=== PATIENT | male | born 1960 | race Caucasian/White ===

== ENCOUNTER 2020-03-22 05:03 | Inpatient (IN) | payer MEDICAID ==
[2020-03-15 15:36] LABS: BASOPHILS % (AUTO) 0.2 % (0-1); EOSINOPHILS # (AUTO) 0.1 X10'3 (0-0.9); EOSINOPHILS % (AUTO) 1.4 % (0-6); LYMPHOCYTES # (AUTO) 2.3 X10'3 (1.1-4.8); LYMPHOCYTES % (AUTO) 26.6 % (21-51); MEAN CORPUSCULAR HEMOGLOBIN 29.5 PG (27.0-31.0); MEAN CORPUSCULAR HGB CONC 33.9 g/dL (33.0-36.5); MEAN CORPUSCULAR VOLUME 87.2 FL (78-98); MONOCYTES # (AUTO) 0.9 X10'3 (0-0.9); NEUTROPHILS # (AUTO) 5.4 X10'3 (1.8-7.7); NEUTROPHILS % (AUTO) 61.8 % (42-75); PRE OP HEMATOCRIT 45.1 % (42.0-52.0); PRE OP HEMOGLOBIN 15.3 g/dL (14.0-17.9); PRE OP PLATELET COUNT 325 X10'3 (140-440); RED BLOOD COUNT 5.17 X10'6 (4.70-6.10); RED CELL DISTRIBUTION WIDTH 13.5 % (11.5-14.5)
[2020-03-15 15:47] LABS: HEMOGLOBIN A1C 5.9 % (4.5-6.2)
[2020-03-15 15:51] LABS: ALBUMIN 3.8 G/DL (3.4-5.0); ALKALINE PHOSPHATASE 124 IU/L (46-116); BLOOD UREA NITROGEN 21 MG/DL (7-18); BUN/CREATININE RATIO 21.9 (5.4-32.0); CALCIUM 8.9 MG/DL (8.5-10.1); CHLORIDE 106 MMOL/L (99-107); CREATININE 0.96 MG/DL (0.60-1.10); PRE OP ALT 57 U/L (30-65); PRE OP ANION GAP 8 (8-16); PRE OP AST 26 U/L (10-37); PRE OP BILIRUB, TOTAL 0.3 MG/DL (0.0-1.0); PRE OP GLUCOSE 99 MG/DL (70-104); PRE OP SODIUM 141 MMOL/L (135-145); TOTAL CARBON DIOXIDE 26.7 MMOL/L (24-32); TOTAL PROTEIN 7.5 G/DL (6.4-8.2); eGFR 80 ML/MIN
[~2020-03-22] VITALS: Ht 190.5 cm; Wt 135.4 kg
[2020-03-22] VITALS (18 sets, daily range): BP systolic 106–153; BP diastolic 56–83
[~2020-03-22 05:03] MED LIST: ATOR20TA66 PO; BUPR300T86 PO; LOSA100T57 PO; MELO-102 PO; METF-950 PO; OMEP-50 PO; PROP10TA10 PO; ringers solution, lacted 1,000 ML IV SCH
[2020-03-22] MEDS ORDERED: ceFAZolin inj. 3,000 MG in normal saline 100ml IV soln 100 ML IV ONE (05:30)
[2020-03-22] MEDS ORDERED: famotidine 20mg tablet PO ONE (05:30)
[2020-03-22] MEDS ORDERED: vancomycin 1,500 MG in NS 300ml IV soln IV ONE (05:30)
[2020-03-22] MEDS ORDERED: NORMAL SALINE IV ONE ×2 (06:30→07:30)
[2020-03-22] MEDS ORDERED: TRANEXAMIC ACID IV ONE ×2 (06:30→07:30)
[2020-03-22] MEDS ORDERED: ketorolac trometh. 30mg/ml inj. ONE (06:37)
[2020-03-22] MEDS ORDERED: ROPIVAcaine 0.5% (5mg/ml) 30ml vial ONE ×2 (06:37→07:06)
[2020-03-22] MEDS ORDERED: sevoflurane 250ml liquid IH ONE (06:58)
[2020-03-22] MEDS ORDERED: fentaNYL/PF 50MCG/1 ML 2ML syringe ONE (07:03)
[2020-03-22] MEDS ORDERED: MIDAZolam 5mg/5ml vial ONE (07:06)
[2020-03-22] MEDS ORDERED: propofol inj 20 ML IV ONE (07:07)
[2020-03-22] MEDS ORDERED: ROPIVAcaine 0.2%/PF PUMP/bolus 550 ML INTERSCALE SCH (08:55)
[2020-03-22] MEDS ORDERED: morphine 2 MG/ML inj. syringe IV PRN (08:55)
[2020-03-22] MEDS ORDERED: proCHLORperazine 10 MG/2 ml inj IV PRN (08:55)
[2020-03-22] MEDS ORDERED: ROPIVAcaine 0.2% (10 MG/5 ML) BOLUS INJECTION INTERSCALE PRN (08:55)
[2020-03-22] MEDS ORDERED: morphine 4 MG/ML inj SYRINge IV PRN (08:55)
[2020-03-22] MEDS ORDERED: meperidine/PF 25mg/ml syringe IV PRN ×3 (08:55)
[2020-03-22] MEDS ORDERED: ringers solution, lacted 1,000 ML IV SCH (08:55)
[2020-03-22] MEDS ORDERED: ondansetron/PF 4mg/2ml inj IV PRN ×2 (08:55→10:00)
--- NOTE | 2020-03-22 09:44 | NUR ---
Received from OR via BED, accompanied by Anesthesiologist DR MUELLER and report given by Anesthesiologist. PT DROWSY, DENIES PAIN, RIGHT SHOULDER W/DRSG, ICE PACK, SLING, SHOULDER WRAP CDI. Addendum: 03/22/20 at 1014 by Yadira Lema RN Amended: Links added.
[2020-03-22] MEDS ORDERED: oxyCODONE IR 5mg (immed. release) tablet PO PRN (10:00)
[2020-03-22] MEDS ORDERED: HYDROmorphone inj. 0.5 MG/0.5 ML DISP.SYRIN IV PRN (10:00)
[2020-03-22] MEDS ORDERED: HYDROmorphone 1 mg/ml syringe IV PRN (10:00)
[2020-03-22] MEDS ORDERED: magnesium hydroxide 30ml (MOM) UD suspension PO PRN (10:00)
[2020-03-22] MEDS ORDERED: diphenhydrAMINE 25mg capsule PO PRN ×2 (10:00)
[2020-03-22] MEDS ORDERED: acetaminophen 325mg tablet PO PRN (10:00)
[2020-03-22] MEDS ORDERED: bisacodyl 10mg suppository rectal RC PRN (10:00)
--- NOTE | 2020-03-22 10:54 | NUR ---
Report called to receiving nurse. Transferred via BED, 2 BAGS OF PERSONAL Belongings SENT W/PT TO ROOM 4024B, PT TRANSFERRED BY DEMETRIO'Estelle. Special Issues communicated to receiving nurse. YES. Addendum: 03/22/20 at 1104 by Yadira Lema RN Amended: Links added.
[2020-03-22] MEDS ORDERED: tranexamic acid inj. 1,350 MG in normal saline 100ml IV soln 100 ML IV ONE (13:00)
[2020-03-22] MEDS: acetaminophen 325mg tablet PO SCH ×2 (14:00→20:59)
[2020-03-22] MEDS: ceFAZolin/D5W- 1GM premix 50 ML IV SCH ×2 (16:36→23:40)
[2020-03-22] MEDS: potassium cl 20mEq in 1/2 NS 1,000 ML IV SCH ×2 (16:37→18:00)
--- NOTE | 2020-03-22 18:37 | NUR ---
Problems reprioritized. Patient report given, questions answered & plan of care reviewed with Liza.
[2020-03-22] MEDS ORDERED: vancomycin/NS 1 GM ADD-VANTAGE 250 ML IV SCH (20:00)
[2020-03-22] MEDS: propranolol 10mg tablet PO SCH (20:59)
[2020-03-22] MEDS: sennosides 8.6mg tablet PO SCH (20:59)
[2020-03-22] MEDS: buPROPion SR 150mg tablet PO SCH (20:59)
[2020-03-22] MEDS: oxyCODONE IR 5mg (immed. release) tablet PO PRN (23:40)
[2020-03-23 02:00] VITALS: BP 161/74
[2020-03-23] MEDS: acetaminophen 325mg tablet PO SCH ×4 (02:00→19:26)
[2020-03-23] MEDS: potassium cl 20mEq in 1/2 NS 1,000 ML IV SCH ×3 (02:00→18:00)
[2020-03-23] MEDS: oxyCODONE IR 5mg (immed. release) tablet PO PRN ×3 (05:21→19:25)
[2020-03-23 06:00] VITALS: BP 152/73
--- NOTE | 2020-03-23 06:14 | NUR ---
REPORT GIVEN TO MELVIN PATINO
[2020-03-23 06:24] LABS: BASOPHILS % (AUTO) 0.2 % (0-1); EOSINOPHILS % (AUTO) 0.1 % (0-6); HEMATOCRIT 40.5 % (42.0-52.0); HEMOGLOBIN 13.8 g/dl (14.0-17.9); LYMPHOCYTES # (AUTO) 1.2 X10'3 (1.1-4.8); LYMPHOCYTES % (AUTO) 9.5 % (21-51); MEAN CORPUSCULAR HEMOGLOBIN 29.9 PG (27.0-31.0); MEAN CORPUSCULAR HGB CONC 33.9 g/dL (33.0-36.5); MEAN PLATELET VOLUME 7.3 FL (7.4-10.4); MONOCYTES # (AUTO) 1.6 X10'3 (0-0.9); MONOCYTES % (AUTO) 12.7 % (2-12); NEUTROPHILS # (AUTO) 9.4 X10'3 (1.8-7.7); NEUTROPHILS % (AUTO) 77.5 % (42-75); PLATELET COUNT 296 X10'3 (140-440); RED BLOOD COUNT 4.61 X10'6 (4.70-6.10); RED CELL DISTRIBUTION WIDTH 13.8 % (11.5-14.5); WHITE BLOOD COUNT 12.2 X10'3 (4.5-11.0)
[2020-03-23 06:34] LABS: ANION GAP 10 (8-16); CHLORIDE 106 MMOL/L (99-107); SODIUM 140 MMOL/L (135-145); TOTAL CARBON DIOXIDE 23.6 MMOL/L (24-32)
--- NOTE | 2020-03-23 06:52 | NUR ---
Patient in room [facility] 4024. I have received report from CAREY De Jesus and had the opportunity to ask questions and assume patient care.
[2020-03-23] MEDS: naproxen 375mg tablet PO SCH ×3 (07:21→19:25)
[2020-03-23] MEDS: buPROPion SR 150mg tablet PO SCH ×2 (07:21→19:25)
[2020-03-23] MEDS: atorvastatin 20mg tablet PO SCH (07:22)
[2020-03-23] MEDS: metFORMIN 500mg tablet PO SCH (07:22)
[2020-03-23] MEDS: pantoprazole 40mg Tablet.DR PO SCH (07:22)
[2020-03-23] MEDS: losartan 50mg tablet PO SCH (07:23)
[2020-03-23] MEDS: propranolol 10mg tablet PO SCH ×2 (07:23→19:25)
[2020-03-23] MEDS ORDERED: aspirin 325mg tablet PO SCH (08:30)
[2020-03-23 10:00] VITALS: BP 134/68
[2020-03-23] MEDS ORDERED: haloperidol 5mg tablet PO PRN (10:00)
[2020-03-23] MEDS ORDERED: haloperidol lactate 5mg/ml inj IM PRN (10:00)
[2020-03-23] MEDS ORDERED: dextrose 50%-water 50ml dispensing syringe IV PRN (10:00)
[2020-03-23] MEDS ORDERED: LORazepam 2 mg/ml vial IV PRN (10:00)
--- NOTE | 2020-03-23 12:06 | NUR ---
Joint Replacement: Pt seen by TAMMY for written/verbal high protein ed w/ RD contact information provided. Pt declines additional proteins at this time. To f/u 03/27 for initial assessment. Addendum: 03/23/20 at [address] Amended: Links added.
[2020-03-23 18:07] VITALS: BP 138/65
--- NOTE | 2020-03-23 18:21 | NUR ---
Problems reprioritized. Patient report given, questions answered & plan of care reviewed with CAREY De Jesus. Pt c/o numbness to throat and right ear. informed, new order to d/c on-Q pump.
--- NOTE | 2020-03-23 18:25 | NUR ---
RECEIVED REPORT FROM MELVIN PATINO AND ASSUMED PATIENT CARE
[2020-03-23] MEDS: sennosides 8.6mg tablet PO SCH (19:25)
[2020-03-23 22:00] VITALS: BP 116/44
[2020-03-24] MEDS: potassium cl 20mEq in 1/2 NS 1,000 ML IV SCH (02:00)
[2020-03-24] MEDS: oxyCODONE IR 5mg (immed. release) tablet PO PRN ×2 (03:09→07:14)
[2020-03-24] MEDS: acetaminophen 325mg tablet PO SCH ×2 (03:09→07:15)
[2020-03-24 06:00] VITALS: BP 119/49
[2020-03-24 06:26] LABS: BASOPHILS % (AUTO) 0.2 % (0-1); EOSINOPHILS # (AUTO) 0.1 X10'3 (0-0.9); EOSINOPHILS % (AUTO) 0.7 % (0-6); HEMATOCRIT 37.7 % (42.0-52.0); HEMOGLOBIN 12.8 g/dl (14.0-17.9); LYMPHOCYTES # (AUTO) 1.7 X10'3 (1.1-4.8); LYMPHOCYTES % (AUTO) 14.7 % (21-51); MEAN PLATELET VOLUME 7.3 FL (7.4-10.4); MONOCYTES # (AUTO) 1.5 X10'3 (0-0.9); MONOCYTES % (AUTO) 12.9 % (2-12); NEUTROPHILS # (AUTO) 8.2 X10'3 (1.8-7.7); NEUTROPHILS % (AUTO) 71.5 % (42-75); PLATELET COUNT 261 X10'3 (140-440); RED BLOOD COUNT 4.28 X10'6 (4.70-6.10); RED CELL DISTRIBUTION WIDTH 13.4 % (11.5-14.5); WHITE BLOOD COUNT 11.5 X10'3 (4.5-11.0)
[2020-03-24] MEDS: metFORMIN 500mg tablet PO SCH (07:14)
[2020-03-24] MEDS: buPROPion SR 150mg tablet PO SCH (07:14)
[2020-03-24] MEDS: pantoprazole 40mg Tablet.DR PO SCH (07:14)
[2020-03-24] MEDS: propranolol 10mg tablet PO SCH (07:14)
[2020-03-24] MEDS: atorvastatin 20mg tablet PO SCH (07:14)
[2020-03-24] MEDS: losartan 50mg tablet PO SCH (07:15)
[2020-03-24] MEDS: naproxen 375mg tablet PO SCH (07:15)
[2020-03-24] MEDS ORDERED: folic acid 1mg tablet PO SCH (08:00)
[2020-03-24] MEDS ORDERED: multivitamins, therapeutics tablet PO SCH (08:00)
[2020-03-24] MEDS ORDERED: thiamine 100mg tablet PO SCH (08:00)
[2020-03-24] MEDS ORDERED: ASPI-1 PO (08:29)
[2020-03-24 10:00] VITALS: BP 123/69
[2020-03-24] MEDS ORDERED: acetaminophen 325mg tablet PO PRN (10:00)
--- NOTE | 2020-03-24 12:00 | NUR ---
Patient stable for discharge home today. All DC instructions given and questions answered. IV removed with canula intact.
[2020-03-25] MEDS ORDERED: LORazepam 2 mg/ml vial IV PRN (10:00)
[2020-03-25] MEDS ORDERED: LORazepam 1 MG tablet PO PRN (10:00)
[2020-03-27] MEDS ORDERED: LORazepam 1 MG tablet PO PRN (10:00)
[2020-03-27] MEDS ORDERED: LORazepam 2 mg/ml vial IV PRN (10:00)
== END 2020-03-24 12:17 | disposition home or self-care (01) | DRG 322 ==
LOC: PAS IN 05:03 → UNDOADMIN 05:03 → EDSTATUS 09:15 → PAS IN 10:00 → EDSTATUS 10:00 → ORTHO 4S 11:00 → PAS IN 11:00
PROVIDERS: ADMIT Orthopaedic Surgery; ATTEND Orthopaedic Surgery
PROC: 0LS30ZZ Reposition Right Upper Arm Tendon, Open Approach (ICD-10-PCS; 2020-03-22)
PROC: 0DH63UZ Insertion of Feeding Device into Stomach, Percutaneous Approach (ICD-10-PCS; 2020-03-22)
PROC: 0RRJ0JZ Replacement of Right Shoulder Joint with Synthetic Substitute, Open Approach (ICD-10-PCS; principal; 2020-03-22 06:58)
PROC: 5A09357 Assistance with Respiratory Ventilation, Less than 24 Consecutive Hours, Continuous Positive Airway Pressure (ICD-10-PCS; 2020-03-23)
DX: M19.011 Primary osteoarthritis, right shoulder (principal); D50.0 Iron deficiency anemia secondary to blood loss (chronic); G89.29 Other chronic pain; M65.9 Synovitis and tenosynovitis, unspecified; Z20.828 Contact with and (suspected) exposure to other viral communicable diseases
CPT/HCPCS: 36415; 80051; 80053; 82948; 83036; 85025; 87081; 87635; 97110; 97161; 97530; G0378; J0690; J1170; J1885; J2175; J2250; J2704; J2795; J3010; J3370; J3480; J7040; J7120